=== PATIENT | female | born 1950 | race African-American/Black ===

== ENCOUNTER 2022-04-27 05:04 | Day surgery (SDC) | payer OTHER ==
[2022-04-25 14:33] VITALS: BMI 36.2
[2022-04-27] MEDS ORDERED: LIDOCAINE 1%/EPI 1:100000 (20 ML MULTI DOSE VIAL) ONE (13:44)
[2022-04-27] MEDS ORDERED: SUCCINYLCHOLINE CHLORIDE 200 MG/10 ML SYRINGE ONE (14:01)
[2022-04-27] MEDS ORDERED: PROPOFOL 20 ML ONE ×2 (14:01→16:35)
[2022-04-27] MEDS ORDERED: MIDAZOLAM HCL 2 MG/2 ML SINGLE DOSE VIAL ONE (14:01)
[2022-04-27] MEDS ORDERED: DEXAMETHASONE SOD PHOSPHATE 4 MG/1 ML VIAL ONE (14:02)
[2022-04-27] MEDS ORDERED: ceFAZolin SODIUM 1 GM VIAL ONE (14:02)
[2022-04-27] MEDS ORDERED: LIDOCAINE HCL/PF 2% SDV 5ML VIAL ONE (14:02)
[2022-04-27] MEDS ORDERED: ONDANSETRON 4 MG/2 ML VIAL ONE (14:02)
[2022-04-27] MEDS ORDERED: SEVOFLURANE 250 ML BTL ONE (14:03)
[2022-04-27] MEDS ORDERED: oxyCODONE HCL 5 MG TABLET PO PRN ×2 (14:13)
[2022-04-27] MEDS ORDERED: ONDANSETRON 4 MG/2 ML VIAL IVPUSH PRN (14:13)
[2022-04-27] MEDS ORDERED: LACTATED RINGERS SOLUTION 1,000 ML IV SCH (14:15)
[2022-04-27] MEDS ORDERED: ceFAZolin SODIUM 1 GM VIAL IVPB ONE (15:35)
[2022-04-27] MEDS ORDERED: BUPIVACAINE HCL/PF 0.5% (5MG/ML) 10 ML VIAL IJ ONE ×2 (16:02)
[2022-04-27] MEDS ORDERED: LIDOCAINE 1%/EPI 1:100000 (20 ML MULTI DOSE VIAL) IJ ONE ×2 (16:02)
[2022-04-27] MEDS ORDERED: MICROFIBRILLAR COLLAGEN 1 GM EACH TP ONE (16:20)
[2022-04-27] MEDS ORDERED: KETOROLAC TROMETHAMINE 30 MG/1 ML VIAL ONE ×2 (17:14)
[2022-04-27] MEDS ORDERED: ACETAMINOPHEN 1000 MG/100 ML BAG IVPB PRN (17:52)
[2022-04-27] MEDS ORDERED: ACETAMINOPHEN INJECTION 100 ML IVPB ONE (19:44)
[2022-04-28 07:07] VITALS: BP 97/49; PULSE 66; RESP 16; TEMP 97.7
== END 2022-04-28 13:55 | disposition home or self-care (01) ==
LOC: JASUSAT 05:04 → JASU-SURG 05:04 → J7W 20:48 → JASUSAT 04-28 13:55
PROVIDERS: ATTEND Surgery
PROC: 00BM0ZZ Excision of Facial Nerve, Open Approach (ICD-10-PCS; 2022-04-27)
PROC: 0CT90ZZ Resection of Left Parotid Gland, Open Approach (ICD-10-PCS; principal; 2022-04-27 14:00)
DX: D11.0 Benign neoplasm of parotid gland (principal); E11.9 Type 2 diabetes mellitus without complications; Z79.84 Long term (current) use of oral hypoglycemic drugs; I10 Essential (primary) hypertension
CPT/HCPCS: 82962; 88307-TC; 93005; 93010; 94760

== ENCOUNTER 2022-05-11 13:08 | Emergency (ER) | payer OTHER ==
[2022-05-11 13:17] VITALS: BP 122/62; PULSE 71; RESP 18; TEMP 98; BMI 33.9
== END 2022-05-11 13:40 | disposition home or self-care (01) ==
LOC: JER 13:08
DX: T81.89XA Other complications of procedures, not elsewhere classified, initial encounter (principal)
CPT/HCPCS: 99283-25